=== PATIENT | female | born 1970 | race Hispanic/Latino ===

== ENCOUNTER 2023-12-18 07:35 | Emergency (ER) | payer OTHER ==
[2023-12-18] VITALS (10 sets, daily range): BP systolic 124–145; BP diastolic 44–59
[~2023-12-18] VITALS: Ht 152.4 cm; Wt 80.0 kg
[~2023-12-18 07:35] MED LIST: AMOXICILLIN500 MG OR; CEPHALEXIN500 M1 OR; LIDOCAINE VISC20 ML EX; LIDOCAINE21 PO; LORTAB 5 OR; LORTAB5 OR; LORTAB5 PO; MEDDOSEPAK OR; NAPROSYN500 MG PO; NO MEDS; NYSTATIN100000 M1 MT; PRENATA3 OR; TRIAMIN26 OR; ULTRAM50 M1 OR; ULTRAM50 MG PO; ZOFRAN ODT4 MG OR; [UNRECOGNIZED DRUG - REMARK]
[2023-12-18 08:26] LABS: BASO% 0.6 % (0-3); EOS% 2.3 % (0-8); HEMATOCRIT 39.5 % (37.0-47.0); HEMOGLOBIN 12.7 g/dl (12.0-16.0); LYMPH% 40.9 % (15-41); MEAN CELL VOLUME 101.3 fL CALC (80.0-100.0); MEAN CORPUSCULAR HGB 32.6 pG CALC (26.0-32.0); MEAN CORPUSCULAR HGB CONC 32.2 g/dL CAL (32.0-36.0); MONO% 6.6 % (2-13); NEUT# 1.72 thou/uL (2.00-7.15); NEUT% 49.6 % (42-76); RED BLOOD COUNT 3.9 mill/uL (4.20-5.60); RED CELL DISTRI WIDTH 12.4 % (11.5-15.5)
[2023-12-18 08:49] LABS: ALKALINE PHOSPHATASE 94 u/l (38-126); ANION GAP 11 (6-22 (CALC)); BILIRUBIN, TOTAL 0.7 mg/dL (0.02-1.3); BUN 9 mg/dL (7-17); BUN/CREATININE RATIO 18 (12-20 (CALC)); CARBON DIOXIDE 25 mmol/l (22-30); CHLORIDE 108 mmol/l (95-108); CREATININE 0.5 mg/dL (0.5-1.0); GFR FOR AFR.AMER. > 60 ML/MIN (>=60 (CALC)); GFR OTHER RACES > 60 ML/MIN (>=60 (CALC)); POTASSIUM 4.5 mmol/l (3.5-5.1); SGOT/AST 35 u/l (14-36); SODIUM 140 mmol/l (137-146); TOTAL PROTEIN 7.5 g/dL (6.3-8.2)
[2023-12-18 09:04] LABS: ALBUMIN 4.2 g/dL (3.2-5.0)
[2023-12-18] MEDS ORDERED: MECLIZINE 2525 MG PO (11:05)
[2023-12-18] MEDS ORDERED: NAPROXEN500 MG PO (11:05)
== END 2023-12-18 11:18 | disposition home or self-care (01) | DRG 90 ==
LOC: ED 07:35
PROVIDERS: Family Medicine
DX: S06.0X0A Concussion without loss of consciousness, initial encounter (principal); M54.2 Cervicalgia; M54.6 Pain in thoracic spine; M54.50 Low back pain, unspecified; R79.89 Other specified abnormal findings of blood chemistry; M25.511 Pain in right shoulder; M25.562 Pain in left knee; V43.52XA Car driver injured in collision with other type car in traffic accident, initial encounter